=== PATIENT | female | born 2000 | race American Indian/Alaskan Native ===

== ENCOUNTER 2019-06-15 04:08 | Emergency (ER) | payer SELFPAY ==
[2019-06-15 05:04] LABS: Bacteria,Urine 1+ /HPF (Negative); Bilirubin,Urine NEG (Negative); Blood,Urine NEG (Negative); Color,Urine Yellow (Yellow); HCG Qualitative,Urine Negative (Negative); Mucus,Urine FEW /HPF; Protein,Urine <15 mg/dL mg/dL (Negative); Urobilinogen,Urine < 2.0 mg/dL (<2.0)
--- NOTE | 2019-06-15 05:51 | Emergency Department Report ---
ED Female HPI - General Chief complaint: Urogenital-Female Stated complaint: VAG PAIN Time Seen by Provider: 06/15/19 05:10 Source: patient Mode of arrival: Ambulatory Limitations: No Limitations - History of Present Illness Initial comments: Patient is a 19-year-old female presents emergency room with complaints of vaginal pain that began 3 days ago. she has associated white vaginal discharge, vaginal itching, dysuria. She denies any fever, nausea, vomiting, diarrhea, chills, any other symptoms. States she has sexually active and does not use protection. Patient denies any history of STDs. She denies any past medical history or allergies medications. States that she has a nexplanon for control. - Related Data Previous Rx's Medication Instructions Recorded Last Taken Type Fluconazole [Diflucan TAB] 150 mg PO ONCE #1 tablet 06/15/19 Unknown Rx metroNIDAZOLE [Flagyl] 500 mg PO BID 7 Days #14 tab 06/15/19 Unknown Rx Allergies Allergy/AdvReac Type Severity Reaction Status Date / Time No Known Allergies Allergy Unverified 06/15/19 04:18 ED Review of Systems ROS: Stated complaint: VAG PAIN Other details as noted in HPI Comment: All other systems reviewed and negative ED Past Medical Hx - Past Medical History Previous Medical History?: No - Surgical History Past Surgical History?: No - Social History Smoking Status: Never Smoker - Medications Home Medications: Home Medications Medication Instructions Recorded Confirmed Last Taken Type Fluconazole [Diflucan TAB] 150 mg PO ONCE #1 tablet 06/15/19 Unknown Rx metroNIDAZOLE [Flagyl] 500 mg PO BID 7 Days #14 tab 06/15/19 Unknown Rx ED Physical Exam - General Limitations: No Limitations General appearance: alert, in no apparent distress - Head Head exam: Present: atraumatic, normocephalic - Eye Eye exam: Present: normal appearance - ENT ENT exam: Present: mucous membranes moist - Respiratory Respiratory exam: Present: normal lung sounds bilaterally. Absent: respiratory distress, wheezes, rales, rhonchi, stridor, chest wall tenderness, accessory muscle use, decreased breath sounds, prolonged expiratory - Cardiovascular Cardiovascular Exam: Present: regular rate, normal rhythm, normal heart sounds. Absent: systolic murmur, diastolic murmur, rubs, gallop - GI/Abdominal GI/Abdominal exam: Present: soft, normal bowel sounds. Absent: distended, tenderness, guarding, rebound, rigid - External exam: Present: normal external exam. Absent: erythema, swelling, lesions, lacerations, ecchymosis, bleeding Speculum exam: Present: vaginal discharge (white), cervical discharge (white), other (dialysis patient care technician: GREGOR Haas). Absent: vaginal bleeding, foreign body, tissue, laceration Bi-manual exam: Present: normal bi-manual exam. Absent: cervical motion tendernes, adnexal tenderness, adnexal mass - Neurological Exam Neurological exam: Present: alert, oriented X3 - Psychiatric Psychiatric exam: Present: normal affect, normal mood - Skin Skin exam: Present: warm, dry, intact ED Course Vital Signs 06/15/19 06/15/19 06/15/19 04:10 06:33 07:30 Temperature 98 F Pulse Rate 108 H 93 H Respiratory 18 18 18 Rate Blood Pressure 122/67 Blood Pressure 117/82 [Left] O2 Sat by Pulse 97 99 Oximetry ED Medical Decision Making - Lab Data Lab Results 06/15/19 Range/Units 04:35 Urine Color Yellow (Yellow) Urine Turbidity Clear (Clear) Urine pH 6.0 (5.0-7.0) Ur Specific [place] 1.025 (1.003-1.030) Urine Protein <15 mg/dl (Negative) mg/dL Urine Glucose (UA) Neg (Negative) mg/dL Urine Ketones Neg (Negative) mg/dL Urine Blood Neg (Negative) Urine Nitrite Neg (Negative) Urine Bilirubin Neg (Negative) Urine Urobilinogen < 2.0 (<2.0) mg/dL Ur Leukocyte Esterase Mod (Negative) Urine WBC (Auto) 6.0 (0.0-6.0) /HPF Urine RBC (Auto) 5.0 (0.0-6.0) /HPF U Epithel Cells (Auto) 5.0 (0-13.0) /HPF Urine Bacteria (Auto) 1+ (Negative) /HPF Urine Mucus Few /HPF Urine HCG, Qual Negative (Negative) - Medical Decision Making Patient is a 19-year-old female presents emergency room with complaints of va ginal pain that began 3 days ago. she has associated white vaginal discharge, vaginal itching, dysuria. She denies any fever, nausea, vomiting, diarrhea, chills, any other symptoms. States she has sexually active and does not use protection. Patient denies any history of STDs. She denies any past medical history or allergies medications. States that she has a nexplanon for control. VSS. no abd tenderness on exam. white discharge present on pelvic examination, no CMT, no adnexal tenderness/masses, no clinical signs of PID or TOA. UA without evidence of UTI. urine preg is negative. G/C swab sent. pt prophylactically treated for G/C with azithromycin and ceftriaxone. Wet prep shows yeast and BV. pt given prescription for Flagyl and fluconazole. advised patient to take medication as prescribed. Do not drink alcohol while taking medication. abstain from sexual intercourse for 10 days. Have partner tested and treated as well. please be seen by the [facility] or health department department for further STD testing. Return to the emergency room for any new or worsening symptoms. please go to medical records in one week with your roll off driver's license for results of your tests but you have already been treated for these. - Differential Diagnosis STD, vaginitis, yeast, BV, UTI Critical care attestation.: If time is entered above; I have spent that time in minutes in the direct care of this critically ill patient, excluding procedure time. ED Disposition Clinical Impression: Bacterial vaginosis, Vulvovaginal candidiasis Disposition: TO HOME OR SELFCARE Is pt being admited?: No Does the pt Need Aspirin: No Condition: Stable Instructions: Bacterial Vaginosis (ED), Sexually Transmitted Diseases (ED), Safe Sex (ED), Vulvovaginal Candidiasis (ED) Additional Instructions: take medication as prescribed. Do not drink alcohol while taking medication. abstain from sexual intercourse for 10 days. Have partner tested and treated as well. please be seen by the [facility] or health department department for further STD testing. Return to the emergency room for any new or worsening symptoms. please go to medical records in one week with your roll off driver's license for results of your tests but you have already been treated for these. Prescriptions: Fluconazole [Diflucan TAB] 150 mg PO ONCE #1 tablet metroNIDAZOLE [Flagyl] 500 mg PO BID 7 Days #14 tab [facility] [Provider Group] - 2-3 Days Forms: STI Treatment and Prevention, Work/School Release Form Time of Disposition: 06:55 Print Language: MALAY
[2019-06-15] MEDS ORDERED: XYLOCAINE 1% MPF 5 mL INFILTRATI ONE (06:15)
[2019-06-15] MEDS ORDERED: ROCEPHIN IM ONE (06:15)
[2019-06-15] MEDS ORDERED: ZITHROMAX PO ONE (06:15)
[2019-06-15 07:31] VITALS: BP 117/82
== END 2019-06-15 07:31 | disposition home or self-care (01) ==
LOC: ED 04:08
DX: B37.3 Candidiasis of vulva and vagina (principal); Z79.899 Other long term (current) drug therapy
CPT/HCPCS: 81001; 81025; 87210; 87591; 96372; 99284; J0696

== ENCOUNTER 2019-09-15 14:09 | Emergency (ER) | payer BC ==
--- NOTE | 2019-09-15 14:31 | Emergency Department Report ---
Blank Doc - Documentation Documentation: 19-year-old female that presents with vaginal discharge. This initial assessment/diagnostic orders/clinical plan/treatment(s) is/are subject to change based on patient's health status, clinical progression and re- assessment by fellow clinical providers in the ED. Further treatment and workup at subsequent clinical providers discretion. Patient/guardians urged not to elope from the ED as their condition may be serious if not clinically assessed and managed. Initial orders include: 1- Patient sent to [facility] for further evaluation and treatment 2- UA 3- pelvic exam to be done
[2019-09-15 15:26] LABS: HCG Qualitative,Urine Negative (Negative)
[2019-09-15 15:31] LABS: Bilirubin,Urine NEG (Negative); Blood,Urine MOD (Negative); Color,Urine Yellow (Yellow); Mucus,Urine 3+ /HPF; Protein,Urine <15 mg/dL mg/dL (Negative); Urobilinogen,Urine < 2.0 mg/dL (<2.0); WBC,Urine < 1.0 /HPF (0.0-6.0)
[2019-09-15 18:28] VITALS: BP 109/65
--- NOTE | 2019-09-15 20:08 | Emergency Department Report ---
ED Female HPI - General Chief complaint: Urogenital-Female Stated complaint: LFT SIDE PAIN/VAGINAL DISCOMFORT Time Seen by Provider: 09/15/19 14:28 Source: patient Mode of arrival: Ambulatory Limitations: No Limitations - History of Present Illness Initial comments: 19-year-old female presents to the emergency room for concerns of a bacterial infection with mild abdominal pain and upper left arm problem. Patient states that this been going on for 1 month. Patient does admit to some nausea but denies any vomiting. Patient reports her last menstrual. Was 09/01/2019. Patient reports she's had been taking ibuprofen. Patient states her left arm has verbal control and it has been in there for 7 years and she wants it out. Patient is 0. Does admit some mild vaginal discharge. Denies any dysuria denies any hematuria Onset/Timin -: month(s) Location: suprapubic, other (left upper arm. ) Radiation: non-radiating Severity: mild Severity scale (0 -10): 1 Improves with: none Worsens with: none Are you Now?: No Last Menstrual Period: 09/01/19 EDC: 06/07/20 Associated Symptoms: vaginal discharge (mild), nausea/vomiting (nausea). denies: fever/chills - Related Data Sexually active: Yes : 0 Previous Rx's Medication Instructions Recorded Last Taken Type Fluconazole [Diflucan TAB] 150 mg PO ONCE #1 tablet 06/15/19 Unknown Rx metroNIDAZOLE [Flagyl] 500 mg PO BID 7 Days #14 tab 06/15/19 Unknown Rx Allergies Allergy/AdvReac Type Severity Reaction Status Date / Time No Known Allergies Allergy Unverified 06/15/19 04:18 ED Review of Systems ROS: Stated complaint: LFT SIDE PAIN/VAGINAL DISCOMFORT Other details as noted in HPI Comment: All other systems reviewed and negative ED Past Medical Hx - Past Medical History Previous Medical History?: No - Surgical History Past Surgical History?: No - Social History Smoking Status: Never Smoker Substance Use Type: None - Medications Home Medications: Home Medications Medication Instructions Recorded Confirmed Last Taken Type Fluconazole [Diflucan TAB] 150 mg PO ONCE #1 tablet 06/15/19 Unknown Rx metroNIDAZOLE [Flagyl] 500 mg PO BID 7 Days #14 tab 06/15/19 Unknown Rx ED Physical Exam - General Limitations: No Limitations General appearance: alert, in no apparent distress - Head Head exam: Present: atraumatic, normocephalic - Eye Eye exam: Present: normal appearance - ENT ENT exam: Present: mucous membranes moist - Neck Neck exam: Present: normal inspection, full ROM - GI/Abdominal GI/Abdominal exam: Present: soft, normal bowel sounds - External exam: Present: normal external exam Speculum exam: Present: cervical discharge Bi-manual exam: Present: normal bi-manual exam - Extremities Exam Extremities exam: Present: normal inspection, full ROM - Expanded Upper Extremity Exam Left Shoulder Exam: Present: normal inspection Upper Arm exam: Present: normal inspection, full ROM. Absent: tenderness, swelling, erythema Elbow exam: Present: normal inspection, full ROM - Back Exam Back exam: Present: normal inspection - Neurological Exam Neurological exam: Present: alert, oriented X3, normal gait - Psychiatric Psychiatric exam: Present: normal affect, normal mood - Skin Skin exam: Present: warm, dry, intact, normal color. Absent: rash ED Course Vital Signs 09/15/19 09/15/19 09/15/19 14:17 14:28 18:25 Temperature 98.3 F 98.3 F 97.8 F Pulse Rate 101 H 104 H 64 Respiratory 16 14 15 Rate Blood Pressure 122/70 122/70 109/65 O2 Sat by Pulse 100 100 100 Oximetry ED Medical Decision Making - Medical Decision Making 19-year-old female presents to the emergency room for concerns of a bacterial infection with mild abdominal pain and upper left arm problem. Patient states that this been going on for 1 month. Patient does admit to some nausea but denies any vomiting. Patient reports her last menstrual. Was 09/01/2019. Patient reports she's had been taking ibuprofen. Patient states her left arm has verbal control and it has been in there for 7 years and she wants it out. Patient is 0. Does admit some mild vaginal discharge. Denies any dysuria denies any hematuria. Wet prep negative, urinalysis negative, hCG urine negative. Discussed with patient to follow up at the health department for full STD workup. Also discussed the patient's Brandi picture ID to medical records on the ground floor to obtain her results for gonorrhea and chlamydia. Discussed with patient her control in her left upper arm needs to be follow-up with [facility]. Referral will be placed. Patient verbalized understanding. Critical care attestation.: If time is entered above; I have spent that time in minutes in the direct care of this critically ill patient, excluding procedure time. ED Disposition Clinical Impression: Normal pelvic exam Disposition: TO HOME OR SELFCARE Is pt being admited?: No Does the pt Need Aspirin: No Condition: Stable Additional Instructions: Negative pelvic exam negative wet prep, negative urinalysis. Follow-up with the health department or [facility]. Referrals: [facility] [Primary Care Provider] - 3-5 Days [facility] [Provider Group] - 3-5 Days [facility] [Provider Group] - 3-5 Days [facility] [Outside] - 3-5 Days [facility] [Outside] - 3-5 Days Forms: Work/School Release Form(ED)
== END 2019-09-15 20:17 | disposition home or self-care (01) ==
LOC: ED 14:09
DX: R10.2 Pelvic and perineal pain (principal); R11.0 Nausea; N89.8 Other specified noninflammatory disorders of vagina
CPT/HCPCS: 81001; 81025; 87210; 87591